=== PATIENT | male | born 2000 | race Two or more races ===

== ENCOUNTER 2020-11-20 10:40 | Emergency (ER) | payer OTHER ==
[~2020-11-20] VITALS: Ht 172.7 cm; Wt 84.1 kg
[2020-11-20] MEDS ORDERED: ValACYclovir HCL 500 MG TABLET PO ONE (12:15)
[2020-11-20] MEDS ORDERED: PERMETHRIN 5% 60 GM CREAM TP ONE (12:15)
[2020-11-20 12:51] LABS: APPEARANCE,URINE CLEAR (CLEAR); BILIRUBIN,URINE PRELIM. POSITIVE (NEGATIVE); GLUCOSE, URINE (UA) NEGATIVE (NEGATIVE); KETONES,URINE >=80 mg/dL (NEGATIVE); LEUKOCYTE ESTERASE ,URINE NEGATIVE (NEGATIVE); NITRATE,URINE NEGATIVE (NEGATIVE); OCCULT BLOOD,URINE NEGATIVE (NEGATIVE); PROTEIN,URINE NEGATIVE (NEGATIVE)
[2020-11-20 14:10] VITALS: BP 140/89
== END 2020-11-20 14:11 ==
LOC: EMS 10:44
DX: B00.9 Herpesviral infection, unspecified (principal); B86 Scabies
CPT/HCPCS: 81003; 99283